=== PATIENT | male | born 2000 | race African-American/Black ===

== ENCOUNTER 2019-08-26 11:02 | Emergency (ER) | payer MEDICAID ==
[~2019-08-26] VITALS: Ht 167.6 cm; Wt 52.0 kg
[2019-08-26 11:06] VITALS: BP 105/72
[2019-08-26] MEDS ORDERED: TETANUS, DIPHTHERIA, PERTUSSIS VAC/PF 0.5ML (>7YR OLD) IM ONE (13:15)
== END 2019-08-26 13:00 | disposition home or self-care (01) ==
LOC: ER 11:02
DX: S61.452A Open bite of left hand, initial encounter (principal); S81.052A Open bite, left knee, initial encounter; W54.0XXA Bitten by dog, initial encounter; Y93.89 Activity, other specified; Y92.89 Other specified places as the place of occurrence of the external cause; Y99.8 Other external cause status
CPT/HCPCS: 99283

== ENCOUNTER 2023-05-19 07:49 | Emergency (ER) | payer MEDICAID ==
[~2023-05-19] VITALS: Ht 162.6 cm; Wt 76.0 kg
[2023-05-19 07:59] VITALS: BP 116/85; PULSE 74; RESP 18; TEMP 98.5; O2SAT 100
== END 2023-05-19 09:12 | disposition home or self-care (01) ==
LOC: ER 07:49
DX: N48.30 Priapism, unspecified (principal)
CPT/HCPCS: 99281

== ENCOUNTER 2024-10-08 08:42 | Emergency (ER) | payer MEDICAID ==
[~2024-10-08] VITALS: Ht 162.6 cm; Wt 60.0 kg
[2024-10-08 08:49] VITALS: O2SAT 100
[2024-10-08 08:54] VITALS: BP 117/73; PULSE 73; RESP 16; TEMP 98.7; O2SAT 100
== END 2024-10-08 09:29 | disposition left against medical advice (07) ==
LOC: ER 08:42
DX: Z53.21 Procedure and treatment not carried out due to patient leaving prior to being seen by health care provider (principal)